=== PATIENT | female | born 1950 | race Caucasian/White ===

== ENCOUNTER 2019-01-18 06:34 | Outpatient (CLI) | payer MEDICARE, OTHER ==
--- NOTE | 2019-01-18 08:09 | ULT ---
US Abdominal: 01/18/2019 12:00 AM CLINICAL HISTORY: Right-sided abdominal pain. STUDY: Complete abdominal ultrasound COMPARISON: None. FINDINGS: Liver: Size: Normal. Echogenicity: Increased Contour: Smooth. Mass: None. Bile ducts: Normal. Common bile duct is 4 mm. Gallbladder: Normal. Pancreas: Head, body, and tail appear normal. Inferior vena cava: Normal in caliber Aorta: Normal in caliber Spleen: No focal lesions. Spleen measuring 10.8 cm in length. Right kidney: No pelvicalyceal dilatation. Right kidney measuring 9.5 cm in length. Left kidney: No pelvicalyceal dilatation. Right kidney measuring 10.0 cm in length. IMPRESSION: Unremarkable exam.
--- NOTE | 2019-01-18 08:46 | ULT ---
ULTRASOUND PELVIC ULTRASOUND TRANSVAGINAL DOPPLER DUPLEX: DATE: 01/18/2019. HISTORY: Diffuse pelvic pain in a 68-year-old female. TECHNIQUE: Transabdominal transducer used to evaluate intrapelvic contents using the urinary bladder as an acous tic window. Endovaginal transducer used to visualize intrapelvic contents in greater detail. Color fl ow Doppler and Pulsed Doppler spectral waveform analysis of ovaries. FINDINGS: Because of body habitus, the intrapelvic contents are poorly visualized on both the transabdominal an d transvaginal images. The ovaries do not appear significantly enlarged, although measurements are v yoseph imprecise. No ovarian cyst larger than 2 cm is identified. Blood flow is demonstrated in the ovaries by Doppler. No free fluid in the cul-de-sac identified. Endometrial stripe very poorly visualized. On the transabdominal images, the uterus measures 7 x 4 x 3.5 cm. No large uterine leiomyoma (fibroid) visualized. IMPRESSION: 1. Limited study. 2. No gross abnormality identified. ANDRY Gerber POS: AUBREY
== END 2019-01-18 06:35 | disposition home or self-care (01) ==
LOC: BICULT 06:34
PROVIDERS: ATTEND Family Medicine
DX: R10.84 Generalized abdominal pain (principal)
CPT/HCPCS: 36415; 76700; 76856; 80053; 80061; 82306; 84443; 85025

== ENCOUNTER 2019-01-19 14:26 | Outpatient (CLI) | payer MEDICARE, OTHER ==
--- NOTE | 2019-01-19 15:13 | MMO ---
Bilateral MAMMO Bilat Screen [facility]. CLINICAL HISTORY: Patient is 68 years old and is seen for screening. The patient has no family history of breast cancer. The patient has no personal history of cancer. VIEWS: The views performed were: bilateral craniocaudal with tomosynthesis; bilateral mediolateral oblique with tomosynthesis; and bilateral exaggerated craniocaudal. FILMS COMPARED: The present examination has been compared to prior imaging studies performed at [facility] on 04/28/2006, 01/18/2008, 07/17/2009, 08/06/2010 and 12/07/2012, and at [facility] on 05/21/1998 and 09/01/2004. MAMMOGRAM FINDINGS: There are scattered fibroglandular densities. There are stable benign appearing calcifications seen in both breasts. There are no suspicious masses, suspicious calcifications, or new areas of architectural distortion. IMPRESSION: THERE IS NO MAMMOGRAPHIC EVIDENCE OF MALIGNANCY. A ROUTINE FOLLOW-UP MAMMOGRAM IN 1 YEAR IS RECOMMENDED. THE RESULTS OF THIS EXAM WERE SENT TO THE PATIENT. ACR BI-RADS Category 2 - Benign finding MAMMOGRAPHY NOTE: 1. A negative mammogram report should not delay a biopsy if a dominant of clinically suspicious mass is present. 2. Approximately 10% to 15% of breast cancers are not detected by mammography. 3. Adenosis and dense breasts may obscure an underlying neoplasm.
== END 2019-01-19 14:27 | disposition home or self-care (01) ==
LOC: BICMAMMO 14:26
PROVIDERS: ATTEND Family Medicine
DX: Z12.31 Encounter for screening mammogram for malignant neoplasm of breast (principal)
CPT/HCPCS: 77063; 77067

== ENCOUNTER 2019-02-16 10:24 | Outpatient (CLI) | payer MEDICARE ==
--- NOTE | 2019-02-16 14:04 | CT ---
CT abdomen and pelvis with IV contrast. Oral contrast was administered. INDICATIONS: Abdominal pain COMPARISON: CT abdomen pelvis 02/27/2013 FINDINGS: Lung bases are clear Liver, spleen, and pancreas appear unremarkable. Stomach and duodenum appear unremarkable. Adrenal glands appear normal. Kidneys appear unremarkable. Collecting structures and urinary bladder appear unremarkable. Small bowel loops are normal caliber and exhibit normal fold pattern. Patient post appendectomy. Scattered diverticula in the left colon and sigmoid colon. Aorta is normal caliber. No evidence of retroperitoneal or mesenteric adenopathy. Uterus unremarkable. There are bilateral adnexal varicosities with prominent opacified veins within t he pelvis. Subcutaneous tissues, abdominal wall, and muscular structures appear unremarkable. Osseous structures appear unremarkable. IMPRESSION: No acute findings
== END 2019-02-16 10:25 | disposition home or self-care (01) ==
LOC: SCSCT 10:24
PROVIDERS: ATTEND Family Medicine
DX: R10.9 Unspecified abdominal pain (principal)
CPT/HCPCS: 74177

== ENCOUNTER 2021-09-08 13:37 | Outpatient (CLI) | payer MEDICARE | END 2021-09-08 13:38 | disposition home or self-care (01) | LOC: MRI 13:37 | PROVIDERS: ATTEND Chiropractor | DX: M51.06 Intervertebral disc disorders with myelopathy, lumbar region (principal); Z95.0 Presence of cardiac pacemaker | CPT/HCPCS: 71045; 72148 ==

== ENCOUNTER 2022-08-18 12:32 | Outpatient (CLI) | payer MEDICARE | END 2022-08-18 12:33 | disposition home or self-care (01) | LOC: MRI 12:32 | PROVIDERS: ATTEND Specialist | DX: M75.101 Unspecified rotator cuff tear or rupture of right shoulder, not specified as traumatic (principal); M19.011 Primary osteoarthritis, right shoulder; M65.9 Synovitis and tenosynovitis, unspecified; S43.431A Superior glenoid labrum lesion of right shoulder, initial encounter ==

== ENCOUNTER 2025-08-15 08:45 | Outpatient (CLI) | payer MEDICARE | END 2025-08-15 08:46 | disposition home or self-care (01) | LOC: MRI 08:45 | PROVIDERS: ATTEND Physician Assistant | DX: S83.281D Other tear of lateral meniscus, current injury, right knee, subsequent encounter (principal); S83.231A Complex tear of medial meniscus, current injury, right knee, initial encounter; M25.861 Other specified joint disorders, right knee; M25.461 Effusion, right knee; Z95.0 Presence of cardiac pacemaker; I51.7 Cardiomegaly | CPT/HCPCS: 71046; 76014 ==